=== PATIENT | male | born 1945 | race Caucasian/White ===

== ENCOUNTER 2019-06-13 19:35 | Emergency (ER) | payer MEDICARE, BC ==
[2019-06-13] MEDS ORDERED: Diphtheria,Pertussis(Acell),Tetanus Vaccine 0.5 ML SDV IM ONE (19:58)
[2019-06-13 20:05] VITALS: BP 141/62; PULSE 70
[2019-06-13] MEDS ORDERED: Sulfamethoxazole/Trimethoprim 800-160 MG Tab PO ONE (20:06)
--- NOTE | 2019-06-13 20:06 | EDM.PDOC ---
ED HPI GENERAL MEDICAL PROBLEM - General Chief Complaint: Skin Complaint Stated Complaint: LEFT SHOULDER INJURY Time Seen by Provider: 06/13/19 20:00 Source of Information: Reports: Patient History Limitations: Reports: No Limitations - History of Present Illness INITIAL COMMENTS - FREE TEXT/NARRATIVE: 74 YO WM presents to ER complaining of left shoulder injury which occurred 5 days ago. Pt reports he was struck in the left shoulder and chest by a piece of farming equipment. Pt reports only minor swelling but significant bruising to site. Pt has a small area of abrasion between shoulder and chest which he has some increased redness over the last 2 days. Family concerned area might be an early infection. Pt denies pain. Pt denies fever/chills. Pt with PMH of NIDDM with a BS of 130 today. Onset Date: 06/08/19 Duration: Day(s): (5) Location: Reports: Chest, Upper Extremity, Left Severity: Mild Improves with: Reports: None Worsens with: Reports: None Associated Symptoms: Reports: No Other Symptoms. Denies: Fever/Chills, Loss of Appetite, Weakness - Related Data Allergies Allergy/AdvReac Type Severity Reaction Status Date / Time No Known Drug Allergies Allergy Cannot Verified 06/13/19 19:46 Remember Home Meds: Home Meds Albuterol [Ventolin HFA] 2 puff INH BID PRN 09/19/13 [History] Ibuprofen 200 mg PO BID PRN 09/19/13 [History] Losartan [Cozaar] 25 mg PO BEDTIME 09/19/13 [History] Sertraline [Zoloft] 100 mg PO BEDTIME 09/19/13 [History] atorvaSTATin [Lipitor] 10 mg PO BEDTIME 09/19/13 [History] Liraglutide [Victoza] 1.8 mg SUBCUT DAILY 10/02/14 [History] Insulin Degludec [Tresiba] 32 unit SQ DAILY 06/13/19 [History] Sulfamethoxazole/Trimethoprim [Septra DS] 1 each PO BID #20 tab 06/13/19 [Rx] Tamsulosin [Tamsulosin 24 Hr] 0.4 mg PO BEDTIME 06/13/19 [History] ED ROS GENERAL - Review of Systems Review Of Systems: See Below Constitutional: Reports: No Symptoms HEENT: Reports: No Symptoms Respiratory: Reports: No Symptoms Cardiovascular: Reports: No Symptoms Endocrine: Reports: No Symptoms GI/Abdominal: Reports: No Symptoms : Reports: No Symptoms Musculoskeletal: Reports: No Symptoms Skin: Reports: Bruising, Wound Neurological: Reports: No Symptoms Psychiatric: Reports: No Symptoms Hematologic/Lymphatic: Reports: No Symptoms Immunologic: Reports: No Symptoms ED EXAM, SKIN/RASH Exam: See Below Exam Limited By: No Limitations General Appearance: Alert, WD/WN, No Apparent Distress Head: Atraumatic, Normocephalic Neck: Normal Inspection, Supple, Non-Tender, Full Range of Motion Respiratory/Chest: No Respiratory Distress, Lungs Clear, Normal Breath Sounds, No Accessory Muscle Use, Chest Non-Tender Cardiovascular: Normal Peripheral Pulses, Regular Rate, Rhythm, No Edema, No Gallop, No JVD, No Murmur, No Rub GI/Abdominal: Normal Bowel Sounds, Soft, Non-Tender, No Organomegaly, No Distention, No Abnormal Bruit, No Mass Back Exam: Normal Inspection, Full Range of Motion, NT Extremities: Normal Range of Motion, Non-Tender, Increased Warmth Neurological: Alert, Oriented, CN II-XII Intact, Normal Cognition, Normal Gait, Normal Reflexes, No Motor/Sensory Deficits Psychiatric: Normal Affect, Normal Mood Skin: Warm, Dry, Ecchymosis, Increased Warmth, Wound/Incision (small area of abrasion without drainage with mild erythema around border) Course - Vital Signs Last Recorded V/S: Last Vital Signs Temp 36.6 C 06/13/19 19:40 Pulse 70 06/13/19 19:40 Resp 16 06/13/19 19:40 BP 141/62 H 06/13/19 19:40 Pulse Ox 96 06/13/19 19:40 - Orders/Labs/Meds Orders: Active Orders 24 hr Category Date Time Status Accu Check [Blood Glucose Check, Bedside] [RC] ONETIME Care 06/13/19 19:58 Active Vaccines to be Administered [RC] PER UNIT ROUTINE Care 06/13/19 19:58 Active Mupirocin Cream [Bactroban Crm] Med 06/13/19 21:00 Ordered 30 gm TOP TID Sulfamethoxazole/Trimethoprim [Septra DS] Med 06/13/19 20:06 Once 1 tab PO BID ONE Labs: Laboratory Tests 06/13/19 Range/Units 19:53 POC Glucose 136 H (74-106) mg/dl Meds: Medications Discontinued Medications Generic Name Dose Route Start Last Admin Trade Name Bartolo PRN Reason Stop Dose Admin Diphtheria/Tetanus/Acell Pertussis 0.5 ml 06/13/19 19:58 Adacel IM 06/13/19 19:59 .ONCE ONE Departure - Departure Time of Disposition: 20:28 Disposition: Home, Self-Care 01 Condition: Good Clinical Impression: Cellulitis Qualifiers: Site of cellulitis: extremity Site of cellulitis of extremity: axilla Laterality: left Qualified Code(s): L03.112 - Cellulitis of left axilla - Discharge Information Prescriptions: Sulfamethoxazole/Trimethoprim [Septra DS] 1 each PO BID #20 tab Instructions: Cellulitis, Adult Referrals: Citlali Balderas PA-C [Primary Care Provider] - Forms: ED Department Discharge Additional Instructions: 1. discahrge home 2. bactroban TID to affected area 3. septra DS BID x 10days 4. follow up with PCP for further evaluation and treatment next 48-72 hours 5. return to ER for worsening symptoms - My Orders Last 24 Hours: My Active Orders 06/13/19 19:58 Accu Check [Blood Glucose Check, Bedside] [RC] ONETIME Vaccines to be Administered [RC] PER UNIT ROUTINE 06/13/19 20:06 Sulfamethoxazole/Trimethoprim [Septra DS] 1 tab PO BID ONE 06/13/19 21:00 Mupirocin Cream [Bactroban Crm] 30 gm TOP TID - Assessment/Plan Last 24 Hours: My Active Orders 06/13/19 19:58 Accu Check [Blood Glucose Check, Bedside] [RC] ONETIME Vaccines to be Administered [RC] PER UNIT ROUTINE 06/13/19 20:06 Sulfamethoxazole/Trimethoprim [Septra DS] 1 tab PO BID ONE 06/13/19 21:00 Mupirocin Cream [Bactroban Crm] 30 gm TOP TID Assessment:: 1. early cellulitis to left chest/shoulder area Plan: 1. discahrge home 2. bactroban TID to affected area 3. septra DS BID x 10days 4. follow up with PCP for further evaluation and treatment next 48-72 hours 5. return to ER for worsening symptoms
[2019-06-13] MEDS ORDERED: Mupirocin Oint 22 GM Tube TOP ONE (20:30)
[2019-06-13] MEDS ORDERED: Mupirocin Crm 15 GM Tube TOP SCH (21:00)
== END 2019-06-13 20:45 | disposition home or self-care (01) ==
LOC: KA.ED 19:35
DX: L03.112 Cellulitis of left axilla (principal); S40.212A Abrasion of left shoulder, initial encounter; E11.9 Type 2 diabetes mellitus without complications; Z23 Encounter for immunization; Z79.4 Long term (current) use of insulin
CPT/HCPCS: 82962; 90471; 90715; 99283; A9270-GY

== ENCOUNTER 2020-06-07 03:48 | Emergency (ER) | payer MEDICARE, OTHER ==
--- NOTE | 2020-06-07 04:21 | EDM.PDOC ---
ED HPI GENERAL MEDICAL PROBLEM - General Chief Complaint: General Stated Complaint: hypoglycemia Time Seen by Provider: 06/07/20 04:20 Source of Information: Reports: Patient - History of Present Illness INITIAL COMMENTS - FREE TEXT/NARRATIVE: Dannie, 75-year-old male, was brought by ambulance after experiencing a hypoglycemic event this morning. When ambulance arrived blood sugar 38 is a were attempting to give him juice. D10 IV was established and he was sluggish to respond to the treatment as per previous events, and was transported for evaluation. D10 had gotten sugar up in over 200 range by the time they were approaching [facility] at which time it was discontinued. At the time of his arrival blood sugar had improved and fingerstick 159 was found. 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 Then to accompany the long day transitioning platform loader frames, he got a flat tire about 7 minutes from home. That additional activity likely accounts for his hypoglycemia, as well as the fact he does not remember if he really had a true supper last night. He said he remembers eating a couple cookies before bed, but cannot remember what he ate. He denies any problems with symptoms at this time conversing freely and has been provided some toast with jelly and ice cream cup. Onset: Today, Sudden Onset Date: 06/07/20 Onset Time: 03:00 Duration: Minutes: Location: Reports: Generalized - Related Data Allergies Allergy/AdvReac Type Severity Reaction Status Date / Time No Known Drug Allergies Allergy Cannot Verified 06/07/20 04:32 Remember Home Meds: Home Meds Albuterol [Ventolin HFA] 2 puff INH BID PRN 09/19/13 [History] Ibuprofen 200 mg PO BID PRN 09/19/13 [History] Losartan [Cozaar] 25 mg PO BEDTIME 09/19/13 [History] Sertraline [Zoloft] 100 mg PO BEDTIME 09/19/13 [History] atorvaSTATin [Lipitor] 10 mg PO BEDTIME 09/19/13 [History] Liraglutide [Victoza] 1.8 mg SUBCUT DAILY 10/02/14 [History] Insulin Degludec [Tresiba] 32 unit SQ DAILY 06/13/19 [History] Sulfamethoxazole/Trimethoprim [Septra DS] 1 each PO BID #20 tab 06/13/19 [Rx] Tamsulosin [Tamsulosin 24 Hr] 0.4 mg PO BEDTIME 06/13/19 [History] Past Medical History HEENT History: Reports: Impaired Vision Cardiovascular History: Reports: High Cholesterol, Hypertension Respiratory History: Reports: Asthma Psychiatric History: Reports: Depression Endocrine/Metabolic History: Reports: Diabetes, Type II, IDDM, Other (See Below) (Hypoglycemic events) Social & Family History - Family History Family Medical History: Noncontributory ED ROS GENERAL - Review of Systems Review Of Systems: Comprehensive ROS is negative, except as noted in HPI. ED EXAM, GENERAL - Physical Exam Exam: See Below Free Text/Narrative:: Alert, oriented, and conversing freely and accurately. HEENT negative discharge or deformity. PERRLA no icterus no injection. [place] moist mucous membranes with no erythema. Neck is soft supple no lymphadenopathy no JVD appreciated. Thorax is overall clear with no wheezes nor crackles. Cardiac bradycardic which is his norm, S1-S2 with a soft grade 1 systolic murmur. Abdomen is soft no pain is noted bowel sounds are active. No edema to the extremities. He is able to sit at the bedside with his legs dangling with no complaint eating his toast and ice cream. As we are waiting his lab work he is entertaining in his conversation. Course - Vital Signs Last Recorded V/S: Last Vital Signs Temp 36.4 C 06/07/20 04:18 Pulse 49 L 06/07/20 04:18 Resp 19 06/07/20 04:18 BP 145/82 H 06/07/20 04:18 Pulse Ox 100 06/07/20 04:18 - Orders/Labs/Meds Orders: Active Orders 24 hr Category Date Time Status COMPREHENSIVE METABOLIC PN,CMP [CHEM] Stat Lab 06/07/20 04:28 Ordered LACTIC ACID [CHEM] Stat Lab 06/07/20 04:28 Ordered Labs: Laboratory Tests 06/07/20 06/07/20 Range/Units 03:59 04:10 WBC 6.06 (5.00-10.00) 10^3/uL RBC 5.00 (4.50-6.00) 10^6/uL Hgb 16.2 (13.0-17.0) g/dL Hct 47.0 (40.0-52.0) % MCV 94.0 H (82.0-92.0) fL MCH 32.4 H (27.0-31.0) pg MCHC 34.5 (32.0-36.0) g/dL RDW 12.3 (11.5-14.5) % Plt Count 242 (150-400) 10^3/uL MPV 10.0 (7.4-10.4) fL Immature Gran % (Auto) 0.2 (0.0-5.0) % Neut % (Auto) 71.3 H (50.0-70.0) % Lymph % (Auto) 17.2 L (20.0-40.0) % [place] % (Auto) 10.6 H (2.0-8.0) % Eos % (Auto) 0.2 L (1.0-3.0) % Baso % (Auto) 0.5 (0.0-1.0) % Neut # (Auto) 4.33 (2.50-7.00) 10^3/uL Lymph # (Auto) 1.04 (1.00-4.00) 10^3/uL [place] # (Auto) 0.64 (0.10-0.80) 10^3/uL Eos # (Auto) 0.01 L (0.10-0.30) 10^3/uL Baso # (Auto) 0.03 (0.00-0.10) 10^3/uL Immature Gran # (Auto) 0.01 (0.00-0.50) 10^3/uL POC Glucose 159 H (74-100) mg/dL Departure - Departure Time of Disposition: 05:02 Disposition: Home, Self-Care 01 Condition: Good Clinical Impression: Hypoglycemic reaction to insulin in type 2 diabetes mellitus, Bradycardia - Discharge Information *PRESCRIPTION DRUG MONITORING PROGRAM REVIEWED*: Not Applicable *COPY OF PRESCRIPTION DRUG MONITORING REPORT IN PATIENT DAVID: Not Applicable Referrals: Citlali Balderas PA-C [Primary Care Provider] - Forms: ED Department Discharge Additional Instructions: You need to go home and eat your breakfast. Continue your medications as directed and make sure you eat your supper especia lly when you have been working extra hard. Go to your appointment today with Citlali and discuss your blood sugar issues and this event. Call or return if concerns prior to your appointment. Sepsis Event Note (ED) - Focused Exam Vital Signs: Vital Signs Temp Pulse Resp BP Pulse Ox 06/07/20 04:18 36.4 C 49 L 19 145/82 H 100 - Problem List & Annotations (1) Insulin dependent diabetes mellitus SNOMED Code(s): 27434035 Code(s): KSR5568 - Status: Acute Priority: High (2) Hypoglycemic reaction to insulin in type 2 diabetes mellitus SNOMED Code(s): 09481620565135, 59143538179227 Code(s): E11.649 - TYPE 2 DIABETES MELLITUS WITH HYPOGLYCEMIA WITHOUT COMA Status: Acute Priority: High (3) Bradycardia SNOMED Code(s): 97393499 Code(s): R00.1 - BRADYCARDIA, UNSPECIFIED Status: Chronic Priority: Medium - Problem List Review Problem List Initiated/Reviewed/Updated: Yes - My Orders Last 24 Hours: My Active Orders 06/07/20 04:28 COMPREHENSIVE METABOLIC PN,CMP [CHEM] Stat LACTIC ACID [CHEM] Stat - Assessment/Plan Last 24 Hours: My Active Orders 06/07/20 04:28 COMPREHENSIVE METABOLIC PN,CMP [CHEM] Stat LACTIC ACID [CHEM] Stat Plan: You need to go home and eat your breakfast. Continue your medications as directed and make sure you eat your supper especially when you have been working extra hard. Go to your appointment today with Citlali and discuss your blood sugar issues and this event. Call or return if concerns prior to your appointment.
[2020-06-07 04:53] LABS: ANION GAP 14.9 mmol/L (5-15); CHLORIDE,CL 102 mmol/L (98-115); SODIUM,NA 139 mmol/L (136-145)
[2020-06-07 06:03] VITALS: BP 152/90; PULSE 56
== END 2020-06-07 05:15 | disposition home or self-care (01) ==
LOC: KA.ED 03:48 → SUPCPDRO 03:48 → KA.ED 05:15
DX: E11.649 Type 2 diabetes mellitus with hypoglycemia without coma (principal); R00.1 Bradycardia, unspecified; E78.00 Pure hypercholesterolemia, unspecified; I10 Essential (primary) hypertension; F32.9 Major depressive disorder, single episode, unspecified; J45.909 Unspecified asthma, uncomplicated; Z79.4 Long term (current) use of insulin; Z79.899 Other long term (current) drug therapy
CPT/HCPCS: 80053; 82962; 83605; 85025; 99283; 99285